=== PATIENT | female | born 1990 | race Caucasian/White ===

== ENCOUNTER 2023-09-01 16:28 | Emergency (ER) | payer OTHER ==
[2023-09-01 16:29] VITALS: TEMP 97.8
[2023-09-01] MEDS ORDERED: CLONI1TA PO (16:52)
[2023-09-01] MEDS ORDERED: TRIL1TAB PO (16:52)
[2023-09-01] MEDS ORDERED: MIRT1TAB16 PO (16:55)
[2023-09-01] MEDS ORDERED: RITA20CA PO (16:55)
[2023-09-01] MEDS ORDERED: RISP1TAB42 PO (16:55)
[2023-09-01 18:12] LABS: BASO % 0.6 % (0.0-1.0); EOS % 0.5 % (0.0-3.0); HEMATOCRIT 40.2 % (36.0-47.0); HEMOGLOBIN 13.9 g/dl (12.0-15.5); LYMPH # 0.9 10^3/uL (1.5-5.0); LYMPH % 13.6 % (24.0-44.0); MEAN CORPUSCULAR HEMOGLOBIN 30.9 pg (27.0-33.0); MEAN CORPUSCULAR HGB CONC 34.6 g/dl (32.0-36.5); MEAN CORPUSCULAR VOLUME 89.3 fl (80.0-96.0); MONO # 0.7 10^3/uL (0.0-0.8); MONO % 11.5 % (2.0-8.0); NEUTROPHILS # 4.7 10^3/uL (1.5-8.5); NEUTROPHILS % 73.5 % (36.0-66.0); PLATELET COUNT, AUTOMATED 238 10^3/uL (150-450); WHITE BLOOD COUNT 6.3 10^3/uL (4.0-10.0)
[2023-09-01 19:25] LABS: CK-MB VALUE MASS < 1.0 NG/ML (<3.6)
[2023-09-01 19:26] LABS: CPK CREATINE PHOSPHOKINASE 98 U/L (34-145); MB/CK RELATIVE INDEX 1.02 (< OR =4)
[2023-09-01 19:34] VITALS: BP 131/69
[2023-09-01 19:58] VITALS: O2SAT 100
== END 2023-09-01 20:03 | disposition home or self-care (01) ==
LOC: EDBD 16:28 → M ED 16:28
DX: R00.2 Palpitations (principal); J45.909 Unspecified asthma, uncomplicated; F90.9 Attention-deficit hyperactivity disorder, unspecified type; M79.7 Fibromyalgia; F12.10 Cannabis abuse, uncomplicated; F10.10 Alcohol abuse, uncomplicated; F60.3 Borderline personality disorder; Z88.2 Allergy status to sulfonamides; Z88.8 Allergy status to other drugs, medicaments and biological substances; Z91.040 Latex allergy status; Z79.899 Other long term (current) drug therapy

== ENCOUNTER 2023-09-12 11:45 | Emergency (ER) | payer OTHER ==
[~2023-09-12] VITALS: Ht 160 cm; Wt 83.5 kg
[~2023-09-12 11:45] MED LIST: CLONI1TA PO; MIRT1TAB16 PO; RISP1TAB42 PO; RITA20CA PO; TRIL1TAB PO
[2023-09-12] MEDS ORDERED: BENZ200C70 PO (14:58)
[2023-09-12 15:05] VITALS: BP 113/78; TEMP 98.7; O2SAT 98
== END 2023-09-12 15:06 | disposition home or self-care (01) ==
LOC: M ED 12:14
DX: J02.9 Acute pharyngitis, unspecified (principal); B34.9 Viral infection, unspecified; J45.909 Unspecified asthma, uncomplicated; Z88.1 Allergy status to other antibiotic agents; Z88.2 Allergy status to sulfonamides; Z88.8 Allergy status to other drugs, medicaments and biological substances; Z91.040 Latex allergy status; Z79.899 Other long term (current) drug therapy

== ENCOUNTER 2024-03-06 06:30 | Emergency (ER) | payer OTHER ==
[~2024-03-06] VITALS: Ht 160 cm; Wt 78.6 kg
[~2024-03-06 06:30] MED LIST changes: +BENZ200C70 PO
[2024-03-06 09:01] LABS: BASO % 0.3 % (0.0-1.0); EOS % 0.1 % (0.0-3.0); HEMATOCRIT 44.7 % (36.0-47.0); HEMOGLOBIN 15.9 g/dl (12.0-15.5); LYMPH # 1.1 10^3/uL (1.5-5.0); LYMPH % 10.3 % (24.0-44.0); MEAN CORPUSCULAR HEMOGLOBIN 30.8 pg (27.0-33.0); MEAN CORPUSCULAR HGB CONC 35.6 g/dl (32.0-36.5); MEAN CORPUSCULAR VOLUME 86.5 fl (80.0-96.0); MONO # 0.8 10^3/uL (0.0-0.8); MONO % 7.8 % (2.0-8.0); NEUTROPHILS # 8.3 10^3/uL (1.5-8.5); NEUTROPHILS % 81.1 % (36.0-66.0); PLATELET COUNT, AUTOMATED 290 10^3/uL (150-450); RED BLOOD COUNT 5.17 10^6/uL (4.00-5.40); WHITE BLOOD COUNT 10.2 10^3/uL (4.0-10.0)
[2024-03-06] MEDS: DICYCLOMINE 10 MG CAP PO ONE (09:23)
[2024-03-06] MEDS: MORPHINE 4 MG/ML 1ML VIAL IV ONE ×2 (09:24→12:12)
[2024-03-06] MEDS: NS 1,000 ML IV ONE (09:24)
[2024-03-06 09:31] LABS: ALBUMIN 4.8 G/DL (3.2-5.2); BILIRUBIN,DIRECT 0.2 MG/DL (<0.4); BILIRUBIN,TOTAL 0.5 MG/DL (0.3-1.2); TOTAL PROTEIN 7.9 G/DL (5.7-8.2)
[2024-03-06 10:14] VITALS: BP 136/80; TEMP 97.5; O2SAT 95
== END 2024-03-06 12:41 | disposition home or self-care (01) ==
LOC: M ED 06:30
DX: N23 Unspecified renal colic (principal); Z88.2 Allergy status to sulfonamides; Z88.8 Allergy status to other drugs, medicaments and biological substances; Z91.040 Latex allergy status; Z79.899 Other long term (current) drug therapy

== ENCOUNTER 2024-04-23 06:30 | Emergency (ER) | payer OTHER ==
[~2024-04-23] VITALS: Ht 160 cm; Wt 76.4 kg
[2024-04-23 07:59] LABS: BASO % 0.3 % (0.0-1.0); EOS # 0.1 10^3/uL (0.0-0.5); EOS % 1.1 % (0.0-3.0); HEMATOCRIT 39.6 % (36.0-47.0); HEMOGLOBIN 14.1 g/dl (12.0-15.5); LYMPH # 0.8 10^3/uL (1.5-5.0); LYMPH % 11.3 % (24.0-44.0); MEAN CORPUSCULAR HEMOGLOBIN 30.8 pg (27.0-33.0); MEAN CORPUSCULAR HGB CONC 35.6 g/dl (32.0-36.5); MEAN CORPUSCULAR VOLUME 86.5 fl (80.0-96.0); MONO # 0.4 10^3/uL (0.0-0.8); MONO % 5.9 % (2.0-8.0); NEUTROPHILS # 6.1 10^3/uL (1.5-8.5); NEUTROPHILS % 81.3 % (36.0-66.0); PLATELET COUNT, AUTOMATED 235 10^3/uL (150-450); RED BLOOD COUNT 4.58 10^6/uL (4.00-5.40); WHITE BLOOD COUNT 7.4 10^3/uL (4.0-10.0)
[2024-04-23 08:28] LABS: LIPASE 22 U/L (12-53)
[2024-04-23 08:30] LABS: ALBUMIN 4.2 G/DL (3.2-5.2); ALKALINE PHOSPHATASE 88 U/L (35-104); ALT/SGPT 62 U/L (7.0-40); AST/SGOT 42 U/L (<34); BILIRUBIN,DIRECT 0.2 MG/DL (<0.4); BILIRUBIN,TOTAL 0.7 MG/DL (0.3-1.2); BLOOD UREA NITROGEN 5 MG/DL (9-23); CALCIUM LEVEL 9.7 MG/DL (8.5-10.1); CARBON DIOXIDE LEVEL 26 MMOL/L (20-31); CHLORIDE LEVEL 97 MMOL/L (98-107); CREATININE FOR GFR 0.54 MG/DL (0.55-1.30); GLOMERULAR FILTRATION RATE > 60.0 (>60); GLUCOSE, FASTING 102 MG/DL (60-100); POTASSIUM SERUM 4.1 MMOL/L (3.5-5.1); SODIUM LEVEL 129 MMOL/L (136-145); TOTAL PROTEIN 6.9 G/DL (5.7-8.2)
[2024-04-23] MEDS: MORPHINE 4 MG/ML 1ML VIAL IV ONE (09:43)
[2024-04-23] MEDS: ONDANSETRON 4MG 2ML VIAL IV ONE (09:43)
[2024-04-23] MEDS ORDERED: ISOVUE-370 76% 100ML VIAL As Ordered ONE (10:33)
[2024-04-23] MEDS ORDERED: ONDA-282 PO (11:10)
[2024-04-23] MEDS ORDERED: COLA100C5 PO (11:10)
[2024-04-23] MEDS ORDERED: MIRA3350 PO (11:10)
[2024-04-23] MEDS: PROMETHAZINE 25MG/ML 1ML VIAL IV ONE (11:59)
[2024-04-23 13:19] VITALS: BP 131/70; TEMP 98.4; O2SAT 98
== END 2024-04-23 13:22 | disposition home or self-care (01) ==
LOC: M ED 06:30
DX: K59.00 Constipation, unspecified (principal); K52.9 Noninfective gastroenteritis and colitis, unspecified; R74.01 Elevation of levels of liver transaminase levels; J45.909 Unspecified asthma, uncomplicated; M79.7 Fibromyalgia; G40.909 Epilepsy, unspecified, not intractable, without status epilepticus; M32.9 Systemic lupus erythematosus, unspecified; F12.10 Cannabis abuse, uncomplicated; F10.10 Alcohol abuse, uncomplicated; Z88.1 Allergy status to other antibiotic agents; Z88.2 Allergy status to sulfonamides; Z88.8 Allergy status to other drugs, medicaments and biological substances; Z91.040 Latex allergy status; Z79.899 Other long term (current) drug therapy
CPT/HCPCS: 74177; 80048; 80076; 83690; 85025; 86850; 86900; 86901; 96374; 96375; 99284; J2405; J2550; Q9967

== ENCOUNTER 2024-12-18 16:25 | Emergency (ER) | payer OTHER ==
[~2024-12-18] VITALS: Ht 160 cm; Wt 59.3 kg
[~2024-12-18 16:25] MED LIST changes: +COLA100C5 PO; +MIRA3350 PO; +ONDA-282 PO; +XANA0.25 PO
[2024-12-18 17:16] LABS: PLATELET COUNT, AUTOMATED 282 10^3/uL (150-450)
[2024-12-18 17:18] LABS: ETHYL ALCOHOL (ETHANOL) 0.076 % (0.000-0.010)
[2024-12-18 17:19] LABS: ALT/SGPT 38 U/L (7.0-40); AST/SGOT 39 U/L (<34); CALCIUM LEVEL 9.2 MG/DL (8.5-10.1); CARBON DIOXIDE LEVEL 17 MMOL/L (20-31); CHLORIDE LEVEL 94 MMOL/L (98-107); CREATININE FOR GFR 0.59 MG/DL (0.55-1.30); GLOMERULAR FILTRATION RATE > 90.0 (>60); POTASSIUM SERUM 3.6 MMOL/L (3.5-5.1); SALICYLATE LEVEL < 3.0 MG/DL (<30); SODIUM LEVEL 133 MMOL/L (136-145)
[2024-12-18] MEDS ORDERED: OMEP40CA5 PO (17:49)
[2024-12-18] MEDS ORDERED: TRIA1CR80 TOP (17:49)
[2024-12-18] MEDS ORDERED: OXCA300T14 PO (17:49)
[2024-12-18] MEDS ORDERED: ROPI5TAB19 PO (17:49)
[2024-12-18] MEDS ORDERED: LEVE500T5 PO (17:49)
[2024-12-18] MEDS ORDERED: ONDA-284 PO (17:49)
[2024-12-18] MEDS ORDERED: ERGO500029 PO (17:49)
[2024-12-18] MEDS ORDERED: [UNRECOGNIZED DRUG - CODE] PO (17:49)
[2024-12-18] MEDS ORDERED: CLON0.5T2 PO (17:49)
[2024-12-18] MEDS ORDERED: CLON0.2T PO (17:50)
[2024-12-18] MEDS ORDERED: HOME MED LIST COMPLETE! XX SCH (17:55)
[2024-12-18] MEDS ORDERED: MORPHINE 10 MG/ML 1 ML VIAL IM ONE (18:05)
[2024-12-18] MEDS: clonazePAM 0.5 MG TAB PO ONE (18:12)
[2024-12-18] MEDS: MORPHINE 4 MG/ML 1 ML VIAL IV ONE (18:13)
[2024-12-18] MEDS: ACETAMINOPHEN *IV* 1,000 MG in IV 1 EA IV ONE (19:21)
[2024-12-18] MEDS: NS (Normal Saline) 0.9% 1,000 ML IV ONE (20:00)
[2024-12-18 21:35] LABS: CALCIUM LEVEL 8.2 MG/DL (8.5-10.1); CARBON DIOXIDE LEVEL 24 MMOL/L (20-31); CHLORIDE LEVEL 99 MMOL/L (98-107); CREATININE FOR GFR 0.55 MG/DL (0.55-1.30); GLOMERULAR FILTRATION RATE > 90.0 (>60); POTASSIUM SERUM 3.9 MMOL/L (3.5-5.1); SODIUM LEVEL 137 MMOL/L (136-145)
[2024-12-18 21:43] VITALS: BP 118/68; TEMP 98.8; O2SAT 97
== END 2024-12-18 23:14 | disposition home or self-care (01) ==
LOC: EDBD 16:25 → M ED 16:25
DX: F43.0 Acute stress reaction (principal); J45.909 Unspecified asthma, uncomplicated; G40.909 Epilepsy, unspecified, not intractable, without status epilepticus; K58.9 Irritable bowel syndrome, unspecified; F90.9 Attention-deficit hyperactivity disorder, unspecified type; F31.9 Bipolar disorder, unspecified; F17.210 Nicotine dependence, cigarettes, uncomplicated; F10.10 Alcohol abuse, uncomplicated; Z88.2 Allergy status to sulfonamides; Z88.1 Allergy status to other antibiotic agents; Z88.6 Allergy status to analgesic agent; Z88.8 Allergy status to other drugs, medicaments and biological substances; Z91.040 Latex allergy status; Z79.899 Other long term (current) drug therapy

== ENCOUNTER 2025-02-14 04:15 | Inpatient (IN) | payer OTHER ==
[~2025-02-14] VITALS: Ht 152.4 cm; Wt 61.0 kg
[~2025-02-14 04:15] MED LIST changes: +CLON0.2T PO; +CLON0.5T2 PO; +ERGO500029 PO; +LEVE500T5 PO; +OMEP40CA5 PO; +ONDA-284 PO; +OXCA300T14 PO; +ROPI5TAB19 PO; +TRIA1CR80 TOP; +[UNRECOGNIZED DRUG - CODE] PO
[2025-02-14 04:58] LABS: PLATELET COUNT, AUTOMATED 365 10^3/uL (150-450)
[2025-02-14 05:24] LABS: AMPHETAMINES LEVEL URINE NEGATIVE (NEGATIVE); BARBITURATES URINE NEGATIVE (NEGATIVE); PHENCYCLIDINE URINE NEGATIVE (NEGATIVE)
[2025-02-14 05:25] LABS: COCAINE METABOLITE URINE NEGATIVE (NEGATIVE); METHADONE URINE NEGATIVE (NEGATIVE); OPIATES URINE NEGATIVE (NEGATIVE)
[2025-02-14 05:26] LABS: ETHYL ALCOHOL (ETHANOL) 0.114 % (0.000-0.010)
[2025-02-14 05:27] LABS: SALICYLATE LEVEL < 3.0 MG/DL (<30)
[2025-02-14] MEDS: OLANZapine INTRAMUSCULAR 10MG VIAL IM STA (05:39)
[2025-02-14 06:14] LABS: ALT/SGPT 58 U/L (7.0-40); AST/SGOT 64 U/L (<34); BENZODIAZEPINES URINE POSITIVE (NEGATIVE); CALCIUM LEVEL 9.3 MG/DL (8.5-10.1); CANNABINOIDS URINE POSITIVE (NEGATIVE); CARBON DIOXIDE LEVEL 25 MMOL/L (20-31); CHLORIDE LEVEL 96 MMOL/L (98-107); CREATININE FOR GFR 0.67 MG/DL (0.55-1.30); GLOMERULAR FILTRATION RATE > 90.0 (>60); POTASSIUM SERUM 4.2 MMOL/L (3.5-5.1); SODIUM LEVEL 127 MMOL/L (136-145)
[2025-02-14] MEDS ORDERED: NICOTINE 14 MG/24 HR TRANSDERMAL TD SCH (09:00)
[2025-02-14] MEDS: FOLIC ACID 1 MG TAB PO SCH (09:00)
[2025-02-14] MEDS: MULTIVITAMINS/MINERALS THERAP 1 TAB PO SCH (09:00)
[2025-02-14] MEDS ORDERED: MIRT1TAB PO (09:44)
[2025-02-14] MEDS ORDERED: HOME MED LIST COMPLETE! XX SCH (09:45)
[2025-02-14 13:30] LABS: URINE PREG TEST NEGATIVE (NEGATIVE)
[2025-02-14] MEDS ORDERED: MAALOX 30 ML SUSP *UDC PO PRN (14:45)
[2025-02-14] MEDS ORDERED: MOM 30 ML SUSPENSION UDC PO PRN (14:45)
[2025-02-14] MEDS ORDERED: IBUPROFEN 400 MG TAB PO PRN (14:45)
[2025-02-14 15:52] VITALS: BP 141/69; TEMP 97.4; O2SAT 100
[2025-02-14 16:25] VITALS: BP 141/69
[2025-02-14] MEDS: OLANZapine ORAL DISINTEGRATING TAB 5MG PO PRN (16:44)
[2025-02-14 18:35] VITALS: BP 140/100; TEMP 98.1; O2SAT 98
[2025-02-14] MEDS ORDERED: ONDANSETRON 4MG ORAL DISINTEGRATING TAB PO PRN (18:35)
[2025-02-14] MEDS: clonazePAM 0.5 MG TAB PO SCH (18:52)
[2025-02-14] MEDS: LORazepam 1 MG TAB PO SCH (19:27)
[2025-02-14] MEDS ORDERED: PILL CUTTER 1 EACH XX PRN (19:30)
[2025-02-14] MEDS: rOPINIRole 0.25 MG TAB PO SCH (19:49)
[2025-02-14] MEDS: traZODone 50 MG TAB PO PRN (19:49)
[2025-02-14] MEDS: THIAMINE 100 MG TAB PO SCH (19:49)
[2025-02-14] MEDS: MIRTAZAPINE 7.5 MG PER 1/2 TABLET PO SCH (19:49)
[2025-02-14 20:25] LABS: BASO # 0.0 10^3/uL (0.0-0.2); BASO % 0.3 % (0.0-1.0); EOS # 0.0 10^3/uL (0.0-0.5); EOS % 0.2 % (0.0-3.0); LYMPH # 1.3 10^3/uL (1.5-5.0); LYMPH % 12.2 % (24.0-44.0); MONO # 0.9 10^3/uL (0.0-0.8); MONO % 8.5 % (2.0-8.0); NEUTROPHILS # 8.3 10^3/uL (1.5-8.5); NEUTROPHILS % 78.5 % (36.0-66.0); PLATELET COUNT, AUTOMATED 336 10^3/uL (150-450)
[2025-02-14 20:48] VITALS: BP 129/78
[2025-02-14 20:50] LABS: ALT/SGPT 54 U/L (7.0-40); AST/SGOT 59 U/L (<34); CALCIUM LEVEL 9.9 MG/DL (8.5-10.1); CARBON DIOXIDE LEVEL 26 MMOL/L (20-31); CHLORIDE LEVEL 96 MMOL/L (98-107); CREATININE FOR GFR 0.61 MG/DL (0.55-1.30); GLOMERULAR FILTRATION RATE > 90.0 (>60); POTASSIUM SERUM 3.6 MMOL/L (3.5-5.1); SODIUM LEVEL 130 MMOL/L (136-145)
[2025-02-14 20:52] LABS: FREE T4 1.21 NG/DL (0.89-1.76)
[2025-02-15 02:00] VITALS: BP 129/78
[2025-02-15] MEDS: OLANZapine 5 MG TAB PO PRN (06:01)
[2025-02-15 06:29] VITALS: BP 107/77; TEMP 97.2; O2SAT 100
[2025-02-15 09:00] VITALS: BP 107/77
[2025-02-15 15:13] VITALS: BP 99/57; TEMP 98.8; O2SAT 100
[2025-02-15] MEDS: clonazePAM 0.5 MG TAB PO PRN (18:18)
[2025-02-15] MEDS: MIRTAZAPINE 15 MG TAB PO SCH (19:57)
[2025-02-15 21:48] VITALS: BP 99/57
[2025-02-15] MEDS: OLANZapine 5 MG TAB PO SCH (21:52)
[2025-02-16 06:30] VITALS: BP 119/56; TEMP 98.8; O2SAT 100
[2025-02-16 15:01] VITALS: BP 101/57; TEMP 98.8; O2SAT 100
[2025-02-16 21:37] VITALS: BP 110/59
[2025-02-17 04:46] VITALS: BP 130/73; TEMP 98.1; O2SAT 95
[2025-02-17 06:00] VITALS: BP 116/59
[2025-02-17 06:22] VITALS: BP 116/59; TEMP 97.5; O2SAT 100
[2025-02-17 08:53] VITALS: BP 145/86
[2025-02-17] MEDS ORDERED: OXCA300T14 PO (12:24)
[2025-02-17] MEDS ORDERED: MIRT-10 PO (12:24)
[2025-02-17] MEDS ORDERED: OLAN7.5T38 PO (12:24)
== END 2025-02-17 15:12 | disposition home or self-care (01) | DRG 753 ==
LOC: M ED 04:15 → M ED INP 14:44 → M PSY 16:02
PROVIDERS: ADMIT Internal Medicine; ATTEND Psychiatry & Neurology Psychiatry
DX: F31.81 Bipolar II disorder (principal); F41.1 Generalized anxiety disorder; F43.10 Post-traumatic stress disorder, unspecified; F90.9 Attention-deficit hyperactivity disorder, unspecified type; E87.1 Hypo-osmolality and hyponatremia; F10.239 Alcohol dependence with withdrawal, unspecified; Z79.899 Other long term (current) drug therapy; Z88.2 Allergy status to sulfonamides; Z88.8 Allergy status to other drugs, medicaments and biological substances; Z91.040 Latex allergy status; S62.306D Unspecified fracture of fifth metacarpal bone, right hand, subsequent encounter for fracture with routine healing